=== PATIENT | male | born 2000 | race Caucasian/White ===

== ENCOUNTER 2018-04-04 04:23 | Emergency (ER) | payer OTHER, MEDICAID ==
[2018-04-04] MEDS ORDERED: NORMAL SALINE 1000 ML 1,000 ML IV ONE ×2 (04:48→06:17)
[2018-04-04] MEDS ORDERED: ONDANSETRON HCL INJ/PF 4 MG/2 ML SDV IV ONE (04:48)
--- NOTE | 2018-04-04 04:50 | ER Document Report ---
ED GI/ - General Chief Complaint: Nausea/Vomiting Stated Complaint: VOMITING Time Seen by Provider: 04/04/18 04:43 Notes: Patient is a 18-year-old male comes emergency department for chief complaint of vomiting. He states for the past couple of hours he has had vomiting every 10 minutes. For dinner he ate [employer]. He denies any other suspicious foods, recent travel, or sick contacts. He denies fever chills, flank pain, fever or chills. After vomiting several times he started having pain in his upper abdomen. He denies hematemesis. Had a bowel movement within the past 24 hours. Denies any surgeries or daily medications. Smokes cigarettes occasionally, denies alcohol, smokes occasional marijuana. TRAVEL OUTSIDE OF THE [place] IN LAST 30 DAYS: No - Related Data Allergies/Adverse Reactions: No Known Allergies Allergy (Verified 09/27/14 15:39) Past Medical History - General Information source: Patient - Social History Smoking Status: Current Some Day Smoker Frequency of alcohol use: None Drug Abuse: Marijuana Lives with: Family Family History: Reviewed & Not Pertinent - Medical History Medical History: Negative Past Surgical History: Reports: Hx Oral Surgery - Immunizations Immunizations up to date: Yes Hx Diphtheria, Pertussis, Tetanus Vaccination: Yes Review of Systems - Review of Systems Constitutional: No symptoms reported EENT: No symptoms reported Cardiovascular: No symptoms reported Respiratory: No symptoms reported Gastrointestinal: See HPI Genitourinary: No symptoms reported Male Genitourinary: No symptoms reported Musculoskeletal: No symptoms reported Skin: No symptoms reported Hematologic/Lymphatic: No symptoms reported Neurological/Psychological: No symptoms reported Physical Exam - Vital signs Vitals: Temp Pulse Resp BP Pulse Ox 98 F 96 18 146/90 H 98 04/04/18 04:27 04/04/18 04:27 04/04/18 04:27 04/04/18 04:27 04/04/18 04:27 - Notes Notes: GENERAL: Alert, interacts well. No acute distress. HEAD: Normocephalic, atraumatic. EYES: Pupils equal, round, and reactive to light. Extraocular movements intact. ENT: Oral mucosa dry, tongue midline. Oral pharyngeal exam unremarkable NECK: Full range of motion. Supple. Trachea midline. LUNGS: Clear to auscultation bilaterally, no wheezes, rales, or rhonchi. No respiratory distress. HEART: Regular rate and rhythm. No murmur ABDOMEN: There is mild generalized tenderness of the abdomen and both upper and lower quadrants, nonspecific, no guarding, no rigidity, no distention noted. EXTREMITIES: Moves all 4 extremities spontaneously. No edema, normal radial and dorsalis pedis pulses bilaterally. No cyanosis. BACK: no cervical, thoracic, lumbar midline tenderness. No saddle anesthesia, normal distal neurovascular exam. NEUROLOGICAL: Alert and oriented x3. Normal speech. [cranial nerves II through XII grossly intact]. PSYCH: Normal affect, normal mood. SKIN: Warm, dry, normal turgor. No rashes or lesions noted. Course - Re-evaluation Re-evalutation: Patient has generalized abdominal tenderness on initial evaluation, he is smiling, talkative, he does have dry mucous membranes, he is otherwise well- appearing. Chemistry is unremarkable, lipase is not elevated, bilirubin and LFTs are unremarkable. CBC shows leukocytosis at 18,000 and elevation of hemoglobin. Suspect this is from dehydration/stress response because of patient's multiple episodes of vomiting. Patient was reevaluated bedside, he is smiling and well- appearing, after Zofran and IV fluids he feels improved, no additional episodes of vomiting. Abdomen is very benign. He denies any current symptoms. Suspect food toxin or viral syndrome, acute abdomen does not appear likely based on his evaluation. Discussed results, recommendations, follow-up, return precautions with patient and family, they state understanding and agreement with plan. - Vital Signs Vital signs: Temp Pulse Resp BP Pulse Ox 98 F 96 18 146/90 H 98 04/04/18 04:27 04/04/18 04:27 04/04/18 04:27 04/04/18 04:27 04/04/18 04:27 - Laboratory Result Diagrams: 04/04/18 05:05 04/04/18 05:05 Laboratory results interpreted by me: 04/04/18 05:05 WBC 18.5 H RBC 5.83 H Hgb 17.7 H Seg Neutrophils % 78.8 H Lymphocytes % 11.6 L Absolute Neutrophils 14.6 H Discharge - Discharge Clinical Impression: Dehydration Vomiting Qualifiers: Vomiting type: unspecified Vomiting Intractability: non-intractable Nausea presence: with nausea Qualified Code(s): R11.2 - Nausea with vomiting, unspecified Condition: Stable Additional Instructions: You have been treated for dehydration, take medications as prescribed. This could be viral, could be ingested food toxin, this is not definite at this time. Symptoms should resolve with time. Start with bland food, slowly progress. Follow-up with primary care. Return to the emergency department for any concerning or worsening symptoms including severe pain of the abdomen, swelling of the abdomen, uncontrolled vomiting, vomiting blood, spiking fever, or any other concerning or worsening symptoms. Prescriptions: Famotidine 20 mg PO BID #20 tablet Promethazine HCl [Phenergan 25 mg Tablet] 25 mg PO Q6H PRN #20 tablet PRN Reason: Forms: Return to Work
[2018-04-04 05:32] LABS: ABSOLUTE BASOPHILS # (AUTO) 0.1 10^3/uL (0.0-0.2); ABSOLUTE EOSINOPHILS # (AUTO) 0.3 10^3/uL (0.0-0.6); ABSOLUTE LYMPHOCYTES (AUTO) 2.1 10^3/uL (0.5-4.7); ABSOLUTE MONOCYTES (AUTO) 1.4 10^3/uL (0.1-1.4); ABSOLUTE NEUT (AUTO) 14.6 10^3/uL (1.7-8.2); BASOPHILS % (AUTO) 0.3 % (0-2); EOSINOPHILS % (AUTO) 1.5 % (0-6); HEMATOCRIT 49.9 % (37.9-51.0); HEMOGLOBIN 17.7 g/dL (13.5-17.0); LYMPHOCYTES % (AUTO) 11.6 % (13-45); MEAN CORPUSCULAR HEMOGLOBIN 30.3 pg (27.0-33.4); MEAN CORPUSCULAR HGB CONC 35.4 g/dL (32.0-36.0); MEAN CORPUSCULAR VOLUME 86 fl (80-97); MONOCYTES % (AUTO) 7.8 % (3-13); PLATELET COUNT 248 10^3/uL (150-450); RED BLOOD COUNT 5.83 10^6/uL (4.35-5.55); RED CELL DISTRIBUTION WIDTH 13.7 % (11.5-14.0); SEGMENTED NEUTROPHILS % (AUTO) 78.8 % (42-78); TOTAL CELLS COUNTED % (AUTO) 100 %; WHITE BLOOD COUNT 18.5 10^3/uL (4.0-10.5)
[2018-04-04 05:59] LABS: ALANINE AMINOTRANSFERASE 43 U/L (21-72); ALBUMIN 4.9 g/dL (3.5-5.0); ALKALINE PHOSPHATASE 82 U/L (38-126); ANION GAP 14 (5-19); ASPARTATE AMINO TRANSFERASE 26 U/L (17-59); BILIRUBIN,DIRECT 0.2 mg/dL (0.0-0.4); BILIRUBIN,TOTAL 0.5 mg/dL (0.2-1.3); BLOOD UREA NITROGEN 18 mg/dL (7-20); CALCIUM 9.9 mg/dL (8.4-10.2); CARBON DIOXIDE 27 mmol/L (22-30); CHLORIDE 103 mmol/L (98-107); GLUCOSE 90 mg/dL (75-110); LIPASE 157.1 U/L (23-300); POTASSIUM 4.4 mmol/L (3.6-5.0); SODIUM 143.9 mmol/L (137-145); TOTAL PROTEIN 7.7 g/dL (6.3-8.2)
[2018-04-04] MEDS ORDERED: PROMETHAZINE HCL 25 MG TABLET PO ONE (06:09)
[2018-04-04] MEDS ORDERED: SUCRALFATE 1 GM TABLET PO ONE (06:09)
[2018-04-04] MEDS ORDERED: FAMOTIDINE 20 MG TABLET PO ONE (06:09)
[2018-04-04 08:11] VITALS: BP 128/65
== END 2018-04-04 08:10 | disposition home or self-care (01) ==
LOC: ER 04:23
DX: E86.0 Dehydration (principal); R11.2 Nausea with vomiting, unspecified; F17.210 Nicotine dependence, cigarettes, uncomplicated
CPT/HCPCS: 99283; 96361; 96374; 36415; 83690; 85025; 80053; J2405; J7030

== ENCOUNTER 2019-02-02 20:58 | Emergency (ER) | payer MEDICAID, OTHER ==
[2019-02-02 21:21] VITALS: BP 132/71
[2019-02-02] MEDS ORDERED: ONDANSETRON HCL INJ/PF 4 MG/2 ML SDV IV ONE (22:20)
[2019-02-02] MEDS ORDERED: NORMAL SALINE 1000 ML 1,000 ML IV ONE (22:21)
--- NOTE | 2019-02-02 22:23 | ER Document Report ---
ED Medical Screen (RME) - General Chief Complaint: Nausea/Vomiting Stated Complaint: VOMITING Time Seen by Provider: 02/02/19 22:16 Primary Care Provider: PRADEEP RAHMAN DO [Primary Care Provider] - Follow up as needed Notes: Patient is a 19-year-old male who presents emergency department with a chief complaint of nausea, vomiting, and abdominal pain. His symptoms started earlier today and he has been vomiting nonstop since 1700 this evening. He states that he vomited 18-20 times. He states the pain started in his right upper quadrant. But he now has diffuse abdominal pain due to vomiting so much. Denies any hematemesis. He states that he has had some diarrhea also. States he ate some [employer] earlier today before his symptoms started. Past medical history includes Tourette's. Exam: Tender right upper quadrant. I have greeted and performed a rapid initial assessment of this patient. A comprehensive ED assessment and evaluation of the patient, analysis of test results and completion of medical decision making process will be conducted by an additional ED providers. TRAVEL OUTSIDE OF THE [place] IN LAST 30 DAYS: No - Related Data Allergies/Adverse Reactions: No Known Allergies Allergy (Verified 09/27/14 15:39) Past Medical History Renal/ Medical History: Denies: Hx Peritoneal Dialysis Past Surgical History: Reports: Hx Oral Surgery - Immunizations Immunizations up to date: Yes Hx Diphtheria, Pertussis, Tetanus Vaccination: Yes Physical Exam - Vital signs Vitals: Temp Pulse Resp BP Pulse Ox 98.4 F 121 H 16 132/71 H 97 02/02/19 21:19 02/02/19 21:19 02/02/19 21:19 02/02/19 21:19 02/02/19 21:19 Course - Vital Signs Vital signs: Temp Pulse Resp BP Pulse Ox 98.4 F 121 H 16 132/71 H 97 02/02/19 21:19 02/02/19 21:19 02/02/19 21:19 02/02/19 21:19 02/02/19 21:19 Doctor's Discharge - Discharge Referrals: PRADEEP RAHMAN DO [Primary Care Provider] - Follow up as needed
[2019-02-02] MEDS ORDERED: KETOROLAC TROMETHAMINE INJ/PF 30 MG/1 ML SDV IV ONE (22:51)
[2019-02-02] MEDS ORDERED: MORPHINE SULFATE 10 MG/ML INJ IV ONE ×2 (22:55→23:24)
[2019-02-02 23:26] LABS: HEMOGLOBIN 17.7 g/dL (13.5-17.0); MEAN CORPUSCULAR HGB CONC 34.8 g/dL (32.0-36.0); MEAN CORPUSCULAR VOLUME 86 fl (80-97); PLATELET COUNT 219 10^3/uL (150-450); RED BLOOD COUNT 5.92 10^6/uL (4.35-5.55); RED CELL DISTRIBUTION WIDTH 13.3 % (11.5-14.0); WHITE BLOOD COUNT 15.1 10^3/uL (4.0-10.5)
[2019-02-02 23:38] LABS: ALANINE AMINOTRANSFERASE 32 U/L (21-72); ALBUMIN 4.7 g/dL (3.5-5.0); ALKALINE PHOSPHATASE 75 U/L (38-126); ANION GAP 11 (5-19); ASPARTATE AMINO TRANSFERASE 19 U/L (17-59); BILIRUBIN,DIRECT 0.3 mg/dL (0.0-0.4); BLOOD UREA NITROGEN 14 mg/dL (7-20); CALCIUM 9.7 mg/dL (8.4-10.2); CARBON DIOXIDE 26 mmol/L (22-30); CHLORIDE 104 mmol/L (98-107); GLUCOSE 110 mg/dL (75-110); POTASSIUM 4.3 mmol/L (3.6-5.0); SODIUM 140.6 mmol/L (137-145); TOTAL PROTEIN 7.2 g/dL (6.3-8.2)
[2019-02-03 00:01] LABS: ABSOLUTE LYMPHOCYTES# (MANUAL) 1.2 10^3/uL (0.5-4.7); ABSOLUTE MONOCYTES # (MANUAL) 0.5 10^3/uL (0.1-1.4); ABSOLUTE NEUTROPHILS# (MANUAL) 13.4 10^3/uL (1.7-8.2); BAND NEUTROPHILS % (MANUAL) 4 % (3-5); BASOPHILS % (MANUAL) 0 % (0-2); EOSINOPHILS % (MANUAL) 0 % (0-6); LYMPHOCYTES % (MANUAL) 8 % (13-45); MONOCYTES % (MANUAL) 3 % (3-13); SEGMENTED NEUTROPHILS % (MAN) 85 % (42-78); TOTAL CELLS COUNTED 100
[2019-02-03 00:02] LABS: PLATELET COMMENT ADEQUATE; RBC MORPHOLOGY COMMENT NORMO-CYTIC/CHROMIC
--- NOTE | 2019-02-03 00:03 | RADIOLOGY REPORT (SQ) ---
EXAM DESCRIPTION: US ABDOMEN LIMITED COMPLETED DATE/TME: 02/02/2019 22:19 CLINICAL HISTORY: 19 years Male RUQ abd pain COMPARISON: None. TECHNIQUE: Transabdominal grayscale imaging were performed to evaluate the right upper quadrant. FINDINGS: Liver appears unremarkable. No focal lesions are noted. Patent hepatopedal portal vein. Unremarkable right kidney. No hydronephrosis mass or calculus. Unremarkable gallbladder without stones or sludge. No surrounding fluid. No wall thickening. Common duct measures 3 mm. Pancreas is unremarkable. IMPRESSION: No evidence of acute process
[2019-02-03] MEDS ORDERED: ONDANSETRON ODT 4 MG TAB (6 TAB/ER DISP) PO PRN (02:49)
--- NOTE | 2019-02-03 02:50 | ER Document Report ---
ED General - General Chief Complaint: Nausea/Vomiting Stated Complaint: VOMITING Time Seen by Provider: 02/02/19 22:16 Primary Care Provider: PRADEEP RAHMAN DO [NO LOCAL MD] - Follow up in 3-5 days Notes: Patient is a 19-year-old male who presents emergency department with a chief complaint of nausea, vomiting, and abdominal pain. His symptoms started earlier today and he has been vomiting nonstop since 1700 this evening. He states that he vomited 18-20 times. He states the pain started in his right upper quadrant. But he now has diffuse abdominal pain due to vomiting so much. Denies any hematemesis. He states that he has had some diarrhea also. States he ate some [employer] earlier today before his symptoms started. Past medical history includes Tourette's. TRAVEL OUTSIDE OF THE [place] IN LAST 30 DAYS: No - Related Data Allergies/Adverse Reactions: No Known Allergies Allergy (Verified 09/27/14 15:39) Past Medical History - Social History Smoking Status: Current Every Day Smoker Frequency of alcohol use: Occasional Drug Abuse: Marijuana Family History: Reviewed & Not Pertinent Patient has suicidal ideation: No Patient has homicidal ideation: No Renal/ Medical History: Denies: Hx Peritoneal Dialysis Past Surgical History: Reports: Hx Oral Surgery - Immunizations Immunizations up to date: Yes Hx Diphtheria, Pertussis, Tetanus Vaccination: Yes Review of Systems - Review of Systems Notes: REVIEW OF SYSTEMS: CONSTITUTIONAL : Denies recent illness. Denies recent unintentional weight loss. Denies fever, chills, or sweats. EENT: Denies eye, ear, throat, or mouth pain, discharge, or symptoms. Denies nasal or sinus congestion. CARDIOVASCULAR: Denies chest pain. RESPIRATORY: Denies shortness of breath, cough, congestion, difficulty anila athing, or wheezing. GASTROINTESTINAL: See HPI GENITOURINARY: Denies difficulty urinating, burning, blood in urine, urgency or frequency. MUSCULOSKELETAL: Denies neck and back pain. Denies joint pain or swelling. SKIN: Denies rash, itchiness, or lesions HEMATOLOGIC : Denies easy bruising or bleeding. LYMPHATIC: Denies swollen, painful, enlarged glands. NEUROLOGICAL: Denies no numbness or tingling denies weakness. Denies headache. Denies altered mental status. Denies alteration in speech. PSYCHIATRIC: Denies stress, anxiety, alteration in sleep patterns, or depression. All other systems reviewed and negative. Physical Exam - Vital signs Vitals: Temp Pulse Resp BP Pulse Ox 98.4 F 121 H 16 132/71 H 97 02/02/19 21:19 02/02/19 21:19 02/02/19 21:19 02/02/19 21:02/02/19 21:19 - Notes Notes: PHYSICAL EXAMINATION: GENERAL: Appears well, healthy, well-nourished, no acute distress. HEAD: Normocephalic, atraumatic. EYES: PERRL, conjunctiva normal, all extraocular movements intact, sclera nonicteric ENT: Moist mucous membranes. NECK: Supple, no noticeable swelling, redness, rash. Normal range of motion. LUNGS: Equal breath sounds bilaterally and clear to auscultation. No wheezes rales or rhonchi. CARDIOVASCULAR: S1-S2, regular rate, regular rhythm. Radial pulses 2+, normal. ABDOMEN: Normoactive bowel sounds. Soft, tender right upper quadrant, no guarding, no rebound tenderness, and no masses palpated. EXTREMITIES: Normal strength and range of motion, no pitting or edema. No cyanosis. NEUROLOGICAL: Moves all extremities upon command. Strength 5/5 in all extremities. PSYCH: Normal mood, normal affect. SKIN: Warm, dry. No rash, lesions, ulcerations noted. Normal skin turgor. Course - Re-evaluation Re-evalutation: 02/03/19 02:50 Patient was reevaluated by myself and he states that he does feel better. He states he is thirsty. He will be p.o. challenged. I will also give him a Zofran Dosepak to go home with. States he feels better with fluids, Zofran, and morphine. Very low suspicion for appendicitis. Hematology and chemistries are both unremarkable. Right upper quadrant ultrasound is normal. At this time, the patient is stable for discharge. Very low suspicion for bowel obstruction, mesenteric ischemia, or any other life-threatening etiology at this time. Verbal discharge instructions were given to the patient. They verbalized understanding. They are stable for discharge. - Vital Signs Vital signs: Temp Pulse Resp BP Pulse Ox 98.4 F 121 H 16 132/71 H 97 02/02/19 21:19 02/02/19 21:19 02/02/19 21:19 02/02/19 21:19 02/02/19 21:19 - Laboratory Result Diagrams: 02/02/19 23:05 02/02/19 23:05 Laboratory results interpreted by me: 02/02/19 23:05 WBC 15.1 H RBC 5.92 H Hgb 17.7 H Seg Neuts % (Manual) 85 H Lymphocytes % (Manual) 8 L Abs Neuts (Manual) 13.4 H Discharge - Discharge Clinical Impression: Nausea and vomiting Qualifiers: Vomiting type: unspecified Vomiting Intractability: non-intractable Qualified Code(s): R11.2 - Nausea with vomiting, unspecified Condition: Stable Disposition: HOME, SELF-CARE Instructions: Antinausea Medication ([facility]), Vomiting ([facility]) Additional Instructions: You were seen today in the emergency department for nausea, vomiting, abdominal pain, and diarrhea. Your ultrasound was normal. These follow-up with your regular doctor in regards to this visit. You have been given Zofran, medication for nausea and vomiting. You can take 1 tablet every 4-6 hours as needed for your nausea and vomiting. You can take Tylenol 1000 mg every 6 hours for your pain. Forms: Return to Work Referrals: PRADEEP RAHMAN DO [NO LOCAL MD] - Follow up in 3-5 days
== END 2019-02-03 03:20 | disposition home or self-care (01) ==
LOC: ER 20:58
DX: R11.2 Nausea with vomiting, unspecified (principal); R10.84 Generalized abdominal pain; R10.811 Right upper quadrant abdominal tenderness; R19.7 Diarrhea, unspecified; F17.200 Nicotine dependence, unspecified, uncomplicated; F12.10 Cannabis abuse, uncomplicated
CPT/HCPCS: 99284; 96361; 96374; 96375; 36415; 85025; 80053; 76705; J2270; J2405; J7030